=== PATIENT | female | born 1995 | race Caucasian/White ===

== ENCOUNTER → 2020-02-12 | Outpatient (CLI) | payer OTHER ==
[~2020-02-12] MED LIST: ACET500 PO; AMOCLA875 PO; AMOX250 PO; AMOX50SU PO; AZIT200SU PO; BIRTH CONTROL; CODACEE120 PO; CODGUAEL PO; HYDR1TAB94 PO; IBUP600 PO; PERM5TC TOP; Verotin-Gr Cap1 EACH PO; Vitamin C100 M1 PO
== END | disposition home or self-care (01) ==
LOC: LAB SHORT 15:55 → LAB 15:55
DX: Z34.02 Encounter for supervision of normal first pregnancy, second trimester (principal); Z3A.24 24 weeks gestation of pregnancy
CPT/HCPCS: 87086

== ENCOUNTER → 2020-05-11 | Outpatient (CLI) | payer BC, OTHER ==
[~2020-05-11] MED LIST changes: +IBUP800 PO
== END | disposition home or self-care (01) ==
LOC: LAB SHORT 17:15 → LAB 17:15 → PLD 17:15
DX: Z34.03 Encounter for supervision of normal first pregnancy, third trimester (principal); Z3A.36 36 weeks gestation of pregnancy
CPT/HCPCS: 87081; 87150

== ENCOUNTER 2020-06-01 20:47 | Inpatient (IN) | payer BC, OTHER ==
[~2020-06-01] VITALS: Ht 175.3 cm; Wt 92.3 kg
[~2020-06-01 20:47] MED LIST changes: -IBUP800 PO
[2020-06-01 21:47] LABS: BASOPHILS ABSOLUTE AUTO 0.04 K/mm3 (0.00-0.23); BASOPHILS PERCENT AUTO 0 % (0-2); EOSINOPHILS ABSOLUTE AUTO 0.06 K/mm3 (0.00-0.68); EOSINOPHILS PERCENT AUTO 0 % (0-6); Hematocrit 37.7 % (33.0-51.0); IMMATURE GRAN ABSOLUTE AUTO 0.22 K/mm3 (0.00-0.10); IMMATURE GRAN PERCENT AUTO 1 % (0-1); LYMPHOCYTES ABSOLUTE AUTO 4.28 K/mm3 (0.84-5.20); LYMPHOCYTES PERCENT AUTO 21 % (21-46); MONOCYTES ABSOLUTE AUTO 1.18 K/mm3 (0.16-1.47); MONOCYTES PERCENT AUTO 6 % (4-13); Mean Corpuscular HGB 28.7 pg (26.0-34.0); Mean Corpuscular HGB Conc 34.5 g/dL (31.5-36.5); Mean Corpuscular Volume 83 fL (80-100); Mean Platelet Volume 10.5 fL (9.1-12.4); NEUTROPHILS ABSOLUTE AUTO 14.92 K/mm3 (1.96-9.15); NEUTROPHILS PERCENT AUTO 72 % (41-73); Platelet Count 308 K/mm3 (150-400); RDW Coefficient Variation 13.2 % (11.7-14.2); Red Blood Cell Count 4.53 M/mm3 (3.80-5.20)
[2020-06-01 22:38] LABS: Influenza A, PCR NEGATIVE (NEGATIVE); Influenza B, PCR NEGATIVE (NEGATIVE); Resp Syncytial Virus, PCR NEGATIVE (NEGATIVE); SARS-Cov-2 (COVID-19) PCR, MMC POSITIVE (NEGATIVE)
[2020-06-02] MEDS ORDERED: IBUP800 PO (11:46)
--- NOTE | 2020-06-02 14:40 | NUR ---
PATIENT PLANS TO DISCHARGE HOME TONIGHT AFTER 24 HOUR TESTING. DISCHARGE TEACHING DONE. MOTHER VERBALIZES UNDERSTANDING OF DC INSTRUCTIONS AND FOLLOW UP APPOINTMENTS.
--- NOTE | 2020-06-03 00:08 | NUR ---
DISCHARGING HOME WITH ALL PERSONAL BELONGINGS. BANDS MATCH WITH BABY.
== END 2020-06-02 23:55 | disposition home or self-care (01) | DRG 807 ==
LOC: BC 20:47 → OBS 20:47 → BC 20:48 → OBS 21:07 → BC 21:18
PROVIDERS: ADMIT Family Medicine
PROC: 10E0XZZ Delivery of Products of Conception, External Approach (ICD-10-PCS; principal; 2020-06-01)
PROC: 0HQ9XZZ Repair Perineum Skin, External Approach (ICD-10-PCS; 2020-06-01)
DX: O99.824 Streptococcus B carrier state complicating childbirth (principal); Z37.0 Single live birth; O70.0 First degree perineal laceration during delivery; Z3A.39 39 weeks gestation of pregnancy; Z20.822 Contact with and (suspected) exposure to COVID-19
CPT/HCPCS: 0241U; 36415; 85025; 86850; 86900; 86901; A9270; J0290; J2590; J3010; J7120

== ENCOUNTER 2020-09-04 15:31 | Emergency (ER) | payer BC, OTHER ==
[~2020-09-04] VITALS: Ht 175.3 cm; Wt 78.9 kg
[~2020-09-04 15:31] MED LIST changes: +IBUP800 PO
[2020-09-04] MEDS ORDERED: AMOCLA875 PO (18:25)
== END 2020-09-04 18:35 | disposition home or self-care (01) ==
LOC: ER 15:31
DX: S81.851A Open bite, right lower leg, initial encounter (principal); S70.312A Abrasion, left thigh, initial encounter; W54.0XXA Bitten by dog, initial encounter
CPT/HCPCS: 12002; 73590; 81025; 99283-25; A9270

== ENCOUNTER → 2021-06-21 | Outpatient (CLI) | payer BC, OTHER | END | disposition home or self-care (01) | LOC: LAB 15:45 → LAB SHORT 15:45 | DX: Z34.82 Encounter for supervision of other normal pregnancy, second trimester (principal); Z3A.26 26 weeks gestation of pregnancy | CPT/HCPCS: 87086 ==

== ENCOUNTER → 2021-08-25 | Outpatient (CLI) | payer BC, OTHER | END | disposition home or self-care (01) | LOC: LAB 11:56 → LAB SHORT 11:56 | DX: Z34.83 Encounter for supervision of other normal pregnancy, third trimester (principal); Z3A.36 36 weeks gestation of pregnancy | CPT/HCPCS: 87081; 87150 ==

== ENCOUNTER 2021-09-27 00:26 | Inpatient (IN) | payer BC, OTHER ==
[~2021-09-27] VITALS: Ht 172.7 cm; Wt 89.1 kg
[2021-09-27] MEDS ORDERED: PRENATAL TABLE1 EAC2 PO (00:53)
[2021-09-27 01:00] LABS: BASOPHILS ABSOLUTE AUTO 0.05 K/mm3 (0.00-0.23); BASOPHILS PERCENT AUTO 0 % (0-2); EOSINOPHILS ABSOLUTE AUTO 0.25 K/mm3 (0.00-0.68); EOSINOPHILS PERCENT AUTO 2 % (0-6); IMMATURE GRAN ABSOLUTE AUTO 0.18 K/mm3 (0.00-0.10); IMMATURE GRAN PERCENT AUTO 1 % (0-1); LYMPHOCYTES PERCENT AUTO 29 % (21-46); MONOCYTES PERCENT AUTO 8 % (4-13); Mean Corpuscular HGB 28.1 pg (26.0-34.0); Mean Corpuscular HGB Conc 33.3 g/dL (31.5-36.5); Mean Corpuscular Volume 84 fL (80-100); Mean Platelet Volume 10.2 fL (9.1-12.4); NEUTROPHILS ABSOLUTE AUTO 10.11 K/mm3 (1.96-9.15); NEUTROPHILS PERCENT AUTO 60 % (41-73); Platelet Count 212 K/mm3 (150-400); RDW Coefficient Variation 13.2 % (11.7-14.2); RDW Standard Deviation 40.4 fL (35.1-46.3); Red Blood Cell Count 4.63 M/mm3 (3.80-5.20); White Blood Cell Count 16.99 K/mm3 (4.00-11.30)
[2021-09-27 06:11] LABS: BASOPHILS ABSOLUTE AUTO 0.06 K/mm3 (0.00-0.23); BASOPHILS PERCENT AUTO 0 % (0-2); EOSINOPHILS ABSOLUTE AUTO 0.03 K/mm3 (0.00-0.68); EOSINOPHILS PERCENT AUTO 0 % (0-6); Hematocrit 37.8 % (33.0-51.0); Hemoglobin 12.5 g/dL (11.5-16.0); IMMATURE GRAN ABSOLUTE AUTO 0.21 K/mm3 (0.00-0.10); IMMATURE GRAN PERCENT AUTO 1 % (0-1); LYMPHOCYTES PERCENT AUTO 10 % (21-46); MONOCYTES PERCENT AUTO 4 % (4-13); Mean Corpuscular HGB 27.8 pg (26.0-34.0); Mean Corpuscular HGB Conc 33.1 g/dL (31.5-36.5); Mean Corpuscular Volume 84 fL (80-100); Mean Platelet Volume 10.2 fL (9.1-12.4); NEUTROPHILS ABSOLUTE AUTO 19.58 K/mm3 (1.96-9.15); NEUTROPHILS PERCENT AUTO 85 % (41-73); Platelet Count 206 K/mm3 (150-400); RDW Coefficient Variation 13.2 % (11.7-14.2); RDW Standard Deviation 39.8 fL (35.1-46.3); Red Blood Cell Count 4.49 M/mm3 (3.80-5.20); White Blood Cell Count 22.98 K/mm3 (4.00-11.30)
--- NOTE | 2021-09-27 10:44 | NUR ---
D/C INSTRUCTIONS DISCUSSED AND SIGNED. EXPERIENCED MOM WHO HUONG SELF AND NB CARE WELL. NO QUESTIONS OR CONCERNS. PT VERY MOTIVATED TO GO HOME.
== END 2021-09-27 14:05 | disposition home or self-care (01) | DRG 807 ==
LOC: OBS 00:26 → BC 00:27 → OBS 00:38 → BC 00:39
PROVIDERS: ADMIT Family Medicine
PROC: 10E0XZZ Delivery of Products of Conception, External Approach (ICD-10-PCS; principal; 2021-09-27)
DX: O48.0 Post-term pregnancy (principal); Z37.0 Single live birth; O99.824 Streptococcus B carrier state complicating childbirth; Z3A.40 40 weeks gestation of pregnancy; Z67.10 Type A blood, Rh positive; O71.82 Other specified trauma to perineum and vulva
CPT/HCPCS: 36415; 85025; 86850; 86900; 86901; A9270; J0290; J1885; J2590; J7120

== ENCOUNTER → 2023-09-28 | Outpatient (CLI) | payer BC, OTHER ==
[~2023-09-28] MED LIST changes: +PRENATAL TABLE1 EAC2 PO
[2023-09-30 16:05] LABS: APTIMA MEDIA TYPE Urine; C. TRACHOMATIS BY TMA Negative (Negative); N. GONORRHOEAE BY TMA Negative (Negative); SPECIMEN SOURCE Urine
== END | disposition home or self-care (01) ==
LOC: LAB SHORT 12:14 → LAB 12:14
PROVIDERS: Family Medicine
DX: Z34.82 Encounter for supervision of other normal pregnancy, second trimester (principal); Z3A.15 15 weeks gestation of pregnancy
CPT/HCPCS: 87086; 87147; 87491; 87591

== ENCOUNTER → 2023-10-22 | Outpatient (CLI) | payer BC, OTHER | LOC: LAB SHORT 17:08 → LAB 17:08 | PROVIDERS: Family Medicine | DX: R30.0 Dysuria (principal); Z12.4 Encounter for screening for malignant neoplasm of cervix | CPT/HCPCS: 87086; G0123 ==